=== PATIENT | female | born 1960 | race Caucasian/White ===

== ENCOUNTER 2019-03-03 05:32 | Inpatient (IN) | payer BC ==
[2019-03-03] VITALS (30 sets, daily range): BP systolic 93–141; BP diastolic 58–81; PULSE 69–112; RESP 13–20; Ht 157.5 cm; Wt 67.0 kg
[~2019-03-03] VITALS: Ht 157.5 cm; Wt 67.0 kg
[~2019-03-03 05:32] MED LIST: ACETAMINOPHEN 1000MG/100ML IV 100 ML IVPB ONE; DEXAMETHASONE 4 MG/ML 1 ML INJ IV ONE; LACTATED RINGER'S 1,000 ML IV SCH; LANSOPRAZOLE 30 MG CAP PO ONE; ONDANSETRON 4 MG INJ IV ONE; TRANEXAMIC ACID 1GM/100ML(PMX) 100 ML INTRA-OP X1 IVPB ONE; TRANEXAMIC ACID 1GM/100ML(PMX) 100 ML PRE-OP X1 IVPB ONE; VANCOMYCIN 1 GM (PMX) 250 ML IVPB ONE; oxyCODONE (CR) 10 MG TAB [oxyCONTIN] PO ONE
--- NOTE | 2019-03-03 06:47 | HPN ---
Date/Time of Note Date/Time of Note DATE: 03/03/19 TIME: 06:46 Interval H&P Admission Note Pt. seen H&P reviewed: No system changes NINA BOATENG MD Mar 03, 2019 06:47
[2019-03-03] MEDS ORDERED: BACITRACIN 50000 UNITS INJ ONE (06:58)
[2019-03-03] MEDS ORDERED: POLYMYXIN B 500000 UNIT INJ ONE (07:03)
[2019-03-03] MEDS ORDERED: TRANEXAMIC ACID 1GM/100ML(PMX) 200 ML ONE (07:03)
[2019-03-03] MEDS ORDERED: HIP PAIN COCKTAIL VANCO INJ SCH ×7 (07:30)
--- NOTE | 2019-03-03 07:37 | PREAC ---
Date/Time of Note Date/Time of Note DATE: 03/03/19 TIME: 07:35 Anesthesia Eval and Record Evaluation Time Pre-Procedure Interview DATE: 03/03/19 TIME: 07:35 Age 58 Sex female NPO: 8 hrs Preoperative diagnosis Left Hip OA Planned procedure Left Total Hip Replacement Anterior Approach Past Medical History Past Medical History: Includes Cardio: HTN, Dyslipidemia Musculoskeletal: Osteoarthritis Surgery & Anesthesia Issues No known issue Meds Anticoagulation: No Beta Phyllis within 24 hr: No Reason Beta Phyllis not given: Pt. not on B-Phyllis Current Medications Lactated Ringer's 1,000 ml @ 125 mls/hr Q8H IV ; Start 03/03/19 at 05:30; Stop 03/03/19 at 13:29 Ropivacaine/ Morphine Sulfate/ Clonidine/ Epinephrine/ Ketorolac Tromethamine/ Vancomycin HCl/ Sodium Chloride INTRA-OP INJ ; Start 03/03/19 at 07:30 Meds reviewed: Yes Allergies Coded Allergies: Penicillins (Verified Allergy, Intermediate, 03/02/19) Allergies Reviewed: Yes Labs/Studies Labs Reviewed: Reviewed by anesthesiologist test: N/A Studies: ECG (n/a), CXR (n/a) Pre-procedure Exam Last vitals Vital Signs Date Temp Pulse Resp B/P (MAP) Pulse Ox O2 O2 Flow FiO2 Time Delivery Rate 03/03/19 97.3 69 17 141/80 98 Room Air 07:18 (100) Airway: Adequate mouth opening, Adequate thyromental dist Mallampati: Mallampati II Teeth: Normal Lung: Normal Heart: Normal ASA Physical Status ASA physical status: 2 Emergency: None Planned Anesthetic General/MAC: ETT Neuraxial: Spinal Nerve block: Other (Left Fascia Iliaca Block) Planned Pain Management Sub-arachniod narcotics, Single shot nerve block, Parenteral pain med Pre-operative Attestations Prior to commencing anesthesia and surgery, the patient was re-evaluated, there was verification of: *The patient's identity *The results of appropriate recent lab work and preoperative vital signs *The above evaluation not changing prior to induction *Anesthetic plan, risk benefits, alternative and complications discussed with patient/family; questions answered; patient/family understands, accepts and wishes to proceed. BRIDGER SILVEIRA MD Mar 03, 2019 07:37
[2019-03-03] MEDS ORDERED: CEFAZOLIN 1 GM INJ ONE (07:41)
[2019-03-03] MEDS ORDERED: PROPOFOL 20 ML ONE (07:41)
[2019-03-03] MEDS ORDERED: ROCURONIUM 50 MG INJ ONE (07:41)
[2019-03-03] MEDS ORDERED: NEOSTIGMINE 3 MG/3 ML SYRINGE ONE (07:41)
[2019-03-03] MEDS ORDERED: GLYCOPYRROLATE 0.4 MG INJ ONE (07:41)
[2019-03-03] MEDS ORDERED: ONDANSETRON 4 MG INJ ONE (07:43)
[2019-03-03] MEDS ORDERED: MIDAZOLAM 1 MG/ML 2 ML INJ ONE (07:43)
[2019-03-03] MEDS ORDERED: DEXAMETHASONE 4 MG/ML 5 ML INJ ONE (07:43)
[2019-03-03] MEDS ORDERED: morphine SULFATE/PF (10 MG/10 ML) INJ ONE (07:43)
[2019-03-03] MEDS ORDERED: FENTAnyl 50 MCG/ML VIAL ONE (07:43)
[2019-03-03] MEDS ORDERED: NALOXONE (0.4 MG/ML) INJ IV PRN ×2 (09:00→10:30)
[2019-03-03] MEDS ORDERED: MEPERIDINE 25 MG INJ IV PRN (09:00)
[2019-03-03] MEDS ORDERED: NALBUPHINE HCL (10 MG/1 ML) INJ IV PRN (09:00)
[2019-03-03] MEDS ORDERED: MIDAZOLAM 1 MG/ML 2 ML INJ IV PRN (09:00)
[2019-03-03] MEDS ORDERED: ONDANSETRON 4 MG INJ IV PRN ×2 (09:00)
[2019-03-03] MEDS ORDERED: DIPHENHYDRAMINE 50 MG INJ IV PRN ×2 (09:00)
[2019-03-03] MEDS ORDERED: HYDROmorphONE 0.5 MG/0.5 ML SYG IV PRN ×2 (09:00)
[2019-03-03] MEDS ORDERED: FENTAnyl 50 MCG/ML VIAL IV PRN ×3 (09:00)
[2019-03-03] MEDS ORDERED: LABETALOL HCL 20MG INJ IV PRN (09:00)
[2019-03-03] MEDS ORDERED: IPRATROPIUM (NEB) 0.5 MG/2.5 ML AMP HHN PRN (09:00)
[2019-03-03] MEDS ORDERED: hydrALAzine 20 MG INJ IV PRN (09:00)
[2019-03-03] MEDS ORDERED: ALBUTEROL 0.083% (NEB) 2.5 MG/3 ML AMP HHN PRN (09:00)
[2019-03-03] MEDS ORDERED: HYDROmorphONE 1 MG/5 ML IV SYRINGE IV PRN ×3 (09:00)
[2019-03-03] MEDS ORDERED: EPHEDrine 25 MG/5 ML SYG IV PRN (09:00)
[2019-03-03] MEDS ORDERED: TRIMETHOBENZAMIDE 100 MG/ML VIAL IM PRN ×2 (09:00)
[2019-03-03] MEDS ORDERED: SUGAMMADEX SODIUM 200 MG/2 ML VIAL IV ONE (10:09)
--- NOTE | 2019-03-03 10:13 | SIPON ---
Date/Time of Note Date/Time of Note DATE: 03/03/19 TIME: 10:11 Operative Report Preoperative Diagnosis Left Hip Osteoarthritis Postoperative Diagnosis Same Operation/Procedure Performed Left Total Hip Arthroplasty Surgeon Selina Cuello MD medical records assistant NIKKY Guzman Anesthesia: spinal Estimated blood loss: other Transfusion Required none Specimen bone Grafts/Implants none Complications none SELINA CUELLO MD Mar 03, 2019 10:13
--- NOTE | 2019-03-03 10:23 | OPR ---
Date/Time of Note Date/Time of Note DATE: 03/03/19 TIME: 10:19 Operative Report Free Text/Dictation DATE OF OPERATION: March 03, 2019 PREOPERATIVE DIAGNOSIS: Left hip osteoarthritis. POSTOPERATIVE DIAGNOSIS: Left hip osteoarthritis. PROCEDURES PERFORMED: 1. Left total hip arthroplasty. CPT code 14558. 2. Computer assisted navigational procedure, CPT code 23715. 3. Interpretation of AP Pelvis x-ray. 4. Interpretation of left hip, 2 views. SURGEON: Nina Cuello. OUTREACH AND EDUCATION SOCIAL WORKER: 1. Leonor Lea PA-C ANESTHESIOLOGIST: Dr. Sorensen ANESTHESIA: Spinal ESTIMATED BLOOD LOSS: 300 mL. COMPLICATIONS: None. SPECIMENS: Resected bone. DISPOSITION: PACU in stable condition. IMPLANT USED: A DePuy Actis Stem size 3 stem, 32/+5 delta ceramic femoral head, 48 Stoughton Cup, 32 mm liner COMPLICATIONS: None. DISPOSITION: To PACU in stable condition. INDICATION FOR PROCEDURE: This is an 58 year-old female with endstage osteoarthritis of the left hip who had failed nonoperative management. Risks, benefits, alternatives of surgical intervention were discussed with the patient and informed consent was obtained. The risks of surgery include but are not limited to infection, deep venous thrombosis, pulmonary embolism, leg length discrepancy, fracture, damage to neurovascular structures requiring repair, loosening of the prosthesis, wear of prosthesis, need for revision surgery, heart attack, stroke, need for blood transfusion, risks associated with anesthesia and even . DESCRIPTION OF PROCEDURE: The patient was met in the preoperative suite and the correct operative site was confirmed and marked. Patient was then brought into operating room. After induction of general anesthesia, the patient was placed in the supine position on the table. The left lower extremity was prepped and draped in the usual sterile fashion. Before starting, a timeout was taken to identify the correct operative site, the patients name and medical record number and to confirm the preoperative antibiotics consisting of 1 gram of IV Ancef, along with 1 gram of tranexamic acid were administered. At this point, an 8 cm incision was made approximately 2 cm lateral and 1 cm distal to the ASIS. The incision was carried down to the fascia. The fascia was then incised. Then, 2 Allis clamps were placed. The interval was then bluntly developed and the tensor fascia marisel was then retracted laterally. The lateral circumflex vessels were identified and coagulated. The anterior capsule was then visualized and a capsulotomy was performed. At this point, markings were made for the napkin ring osteotomy of the femoral neck. Using the saw the initial osteotomy was then made and completed with the use of an osteotome. A Vianey was then used to remove the napkin ring and a corkscrew was then placed in the femoral head and the head was then removed. The head was sized to 45 mm. Sequential reaming was begun with a 41 mm reamer, going up to a 47 mm reamer. A trial 48 mm cup was then impacted and the radlink was then used to determine the appropriate anteversion and abduction of the cup. The cup was noted to be in approximately 36 degrees of inclination, and 19 degrees of anteversion. The trial was then removed. The appropriate size cup was then placed and again the radlink was used to determine the inclination and anteversion, and was noted be unchanged. The 32 mm liner was then impacted into place and the final acetabular x-rays were taken which again demonstrated the cup to be in appropriate abduction and anteversion. At this point, the femoral lift was then used and the leg was then placed in external rotation, extension, and adduction. Retractors were placed and the femoral releases were performed using a box osteotome followed by a canal finder. Sequential broaching was begun with a 0 broach going up to a size 3 standard broach. The trial 3 mm standard offset stem along with a 32/+5 trial head and neck were placed. The hip was then reduced and taken through range of motion, noted to be stable in extension and external rotation of up to 110 degrees. AP x-rays of the pelvis and left hip, 2 view x-rays were taken. The x-rays demonstrated the prosthesis to be in the correct position with equal leg lengths. The trial components were then removed. The appropriate sized components were then placed. The hip was again reduced with unchanged stability and equal leg lengths and no fractures were seen. The hip was again taken through range of motion and noted to be stable to extension and external rotation. The wound was then thoroughly irrigated. The capsule and the fascia were closed using #1 Stratafix. The subcutaneous tissue was closed using 2-0 Vicryl and the skin with 4-0 Monocryl in subcuticular fashion and Steri-Strips were applied. There were no complications. Patient was awakened and taken to postoperative care unit in stable condition. Prior to transfer, the patient was noted to have equal leg lengths and a palpable dorsalis pedis pulse. POSTOPERATIVE CARE: Patient will be weightbearing as tolerated. Patient will work with physical therapy, and receive multimodal pain management.. Patient will receive two additional doses of IV Ancef along with aspirin 81 mg p.o. b.i.d. for 6 weeks. Patient will have SCDs while in the hospital. Upon discharge, patient will follow up in my office within 2 weeks postoperatively. NINA CUELLO MD Mar 03, 2019 10:23
[2019-03-03] MEDS ORDERED: SENNA/DOCUSATE NA (8.6MG/50MG) TAB PO PRN (10:30)
[2019-03-03] MEDS ORDERED: BISACODYL 10 MG SUPP PR PRN (10:30)
[2019-03-03] MEDS ORDERED: NACL 0.9% 3 ML SYG IV SCH (10:30)
[2019-03-03] MEDS ORDERED: KETOROLAC 15 MG INJ IV PRN (10:30)
[2019-03-03] MEDS ORDERED: oxyCODONE 5 MG TAB PO PRN (10:30)
[2019-03-03] MEDS ORDERED: MAGNESIUM HYDROXIDE 30ML CUP PO PRN (10:30)
[2019-03-03] MEDS ORDERED: NA PHOSPHATE/BIPHOS 133 ML ENEMA PR PRN (10:30)
--- NOTE | 2019-03-03 10:43 | PAC ---
Date/Time of Note Date/Time of Note DATE: 03/03/19 TIME: 10:43 Post-Anesthesia Notes Post-Anesthesia Note Last documented vital signs Vital Signs Date Temp Pulse Resp B/P (MAP) Pulse Ox O2 O2 Flow FiO2 Time Delivery Rate 03/03/19 97.3 69 17 141/80 98 Room Air 07:18 (100) Activity: WNL Respiratory function: WNL Cardiovascular function: WNL Mental status: Baseline Pain reasonably controlled: Yes Hydration appropriate: Yes Nausea/Vomiting absent: Yes Omer Sorensen M.D. Mar 03, 2019 10:43
[2019-03-03] MEDS ORDERED: DOCUSATE SODIUM 100 MG CAP PO ONE (12:00)
[2019-03-03] MEDS: GABAPENTIN 100 MG CAP PO SCH ×2 (12:40→20:57)
--- NOTE | 2019-03-03 14:54 | CONS ---
Assessment/Plan Assessment/Plan Hospital Course (Demo Recall) 58-year-old female with comorbidities including hypertension, CAD status post coronary angioplasty, hyperlipidemia, and osteoarthritis of the left hip who underwent an elective left total hip arthroplasty and is being admitted to inpatient setting. 1. Left hip osteoarthritis. Status post left total hip arthroplasty on 03/03/2019. Postoperative day #0. Continue pain control. Weightbearing as per orthopedic surgery. Anticoagulation as per orthopedic surgery. Physical therapy and occupational therapy evaluation. 2. Hypertension. Resume home antihypertensives. 3. Dyslipidemia. Will obtain fasting lipid panel. Resume antilipemic medications. 4. History of CAD, status post coronary angioplasty. Continue aspirin. Continue cardiac medications. CODE STATUS: Full code. Diet: Low-cholesterol diet. Anticoagulation: As per orthopedic surgery. We will continue to follow the patient along with you. Thank you for allowing us to participate in this patient's care. The patient was seen in collaboration with Dr. Maldonado. Consultation Date/Type/Reason Admit Date/Time Mar 03, 2019 at 05:32 Date of Consultation: Mar 03, 2019 Type of Consult Medical. Reason for Consultation Medical management Requesting Provider: NINA BOATEGN MD Date/Time of Note DATE: 03/03/19 TIME: 14:54 Hx of Present Illness This is a 58-year-old female with comorbidities including CAD status post coronary angioplasty, hypertension, hyperlipidemia, osteoporosis, and severe left hip osteoarthritis who was brought in for elective left hip arthroplasty. The patient underwent a left total hip arthroplasty on 03/03/2019. Hospitalist consult was obtained for medical management. Constitutional: no complaints Eyes: no complaints ENT: no complaints Respiratory: no complaints Cardiovascular: no complaints Gastrointestinal: no complaints Genitourinary: no complaints Musculoskeletal: bone/joint pain Skin: no complaints Neurologic: no complaints Endocrine: no complaints Lymphatic: no complaints Psychological: no complaints Immunologic: no complaints Past Medical History 1. CAD. 2. HTN. 3. Hyperlipidemia. 4. Osteoporosis. Medications Current Medications Hydromorphone HCl (Dilaudid) 0.2 mg PACU PRN IV MILD PAIN 1-3; Start 03/03/19 at 09:00; Stop 03/03/19 at 15:00 Hydromorphone HCl (Dilaudid) 0.4 mg PACU PRN IV MOD PAIN 4-6; Start 03/03/19 at 09:00; Stop 03/03/19 at 15:00 Hydromorphone HCl (Dilaudid) 0.6 mg PACU PRN IV SEVERE PAIN 7-10; Start 03/03/19 at 09:00; Stop 03/03/19 at 15:00 Fentanyl (Sublimaze) 25 mcg PACU ORDER PRN IV MILD PAIN 1-3; Start 03/03/19 at 09:00; Stop 03/03/19 at 15:00 Fentanyl (Sublimaze) 50 mcg PACU ORDER PRN IV MOD PAIN 4-6; Start 03/03/19 at 09:00; Stop 03/03/19 at 15:00 Fentanyl (Sublimaze) 75 mcg PACU ORDER PRN IV SEVERE PAIN 7-10; Start 03/03/19 at 09:00; Stop 03/03/19 at 15:00 Ondansetron HCl (Zofran Inj) 4 mg PACU ORDER PRN IV NAUSEA/VOMITING; Start 03/03/19 at 09:00; Stop 03/03/19 at 15:00 Trimethobenzamide HCl (Tigan) 200 mg PACU ORDER PRN IM NAUSEA/VOMITING; Start 03/03/19 at 09:00; Stop 03/03/19 at 15:00 Labetalol HCl (Labetalol) 5 mg PACU ORDER PRN IV HIGH BLOOD PRESSURE; Start 03/03/19 at 09:00; Stop 03/03/19 at 15:00 Hydralazine HCl (Apresoline) 5 mg PACU ORDER PRN IV HIGH BLOOD PRESSURE; Start 03/03/19 at 09:00; Stop 03/03/19 at 15:00 Ephedrine Sulfate 5 mg PACU ORDER PRN IV BLOOD PRESSURE SUPPORT; Start 03/03/19 at 09:00; Stop 03/03/19 at 15:00 Albuterol (Proventil 0.083% (Neb)) 2.5 mg PACU ORDER PRN HHN .WHEEZING; Start 03/03/19 at 09:00; Stop 03/03/19 at 15:00 Ipratropium [place] (Atrovent 0.02% (Neb)) 0.5 mg PACU ORDER PRN HHN .WHEEZING; Start 03/03/19 at 09:00; Stop 03/03/19 at 15:00 Meperidine HCl (Demerol) 25 mg PACU ORDER PRN IV .RIGORS; Start 03/03/19 at 09:00; Stop 03/03/19 at 15:00 Diphenhydramine HCl (Benadryl) 25 mg PACU ORDER PRN IV .PRURITUS; Start 03/03/19 at 09:00; Stop 03/03/19 at 15:00 Midazolam HCl (Versed) 0.5 mg PACU ORDER PRN IV .ANXIETY; Start 03/03/19 at 09:00; Stop 03/03/19 at 15:00 Hydromorphone HCl (Dilaudid) 0.2 mg Q2H PRN IV .PAIN 1-5; Start 03/03/19 at 09:00; Stop 03/04/19 at 07:45 Hydromorphone HCl (Dilaudid) 0.4 mg Q2H PRN IV .PAIN 6-10; Start 03/03/19 at 09:00; Stop 03/04/19 at 07:45 Diphenhydramine HCl (Benadryl) 25 mg Q4H PRN IV .PRURITUS; Start 03/03/19 at 09:00; Stop 03/04/19 at 07:45 Nalbuphine HCl (Nubain) 10 mg Q4H PRN IV .PRURITUS; Start 03/03/19 at 09:00; Stop 03/04/19 at 07:45 Ondansetron HCl (Zofran Inj) 4 mg Q6H PRN IV .NAUSEA/VOMITING; Start 03/03/19 at 09:00; Stop 03/04/19 at 07:45 Trimethobenzamide HCl (Tigan) 200 mg Q6H PRN IM .NAUSEA/VOMITING; Start 03/03/19 at 09:00; Stop 03/04/19 at 07:45 Naloxone HCl (Narcan) 0.2 mg Q2M PRN IV .RESP RATE; Start 03/03/19 at 09:00; Stop 03/04/19 at 07:45 Miscellaneous Information (* Miscellaneous Pharmacy Order) DURAMORPH: 0.1 MG SPI... GIVEN NEURAXIAL XX ; Start 03/03/19 at 09:00 Oxycodone HCl (Roxicodone) 5 mg Q4H PRN PO .PAIN; Start 03/03/19 at 10:30 Vancomycin HCl 250 ml @ 125 mls/hr Q12H IVPB ; Start 03/03/19 at 18:00; Stop 03/04/19 at 07:59 Celecoxib (Celebrex) 100 mg BID PO ; Start 03/04/19 at 09:00 Gabapentin (Neurontin) 100 mg TID PO Last administered on 03/03/19at 12:40; Admin Dose 100 MG; Start 03/03/19 at 13:00 Pantoprazole (Protonix Tab) 40 mg DAILY@06 PO ; Start 03/04/19 at 06:00 Docusate Sodium (Colace) 200 mg BID PO ; Start 03/04/19 at 09:00; Stop 03/06/19 at 21:01 Simethicone (Mylicon) 80 mg TID PRN PO .GAS; Start 03/03/19 at 10:30 Senna/Docusate Sodium (Senokot-S) 2 tab BID PRN PO .CONSTIPATION; Start 03/03/19 at 10:30 Magnesium Hydroxide (Milk Of Mag) 30 ml HS PRN PO .CONSTIPATION; Start 03/03/19 at 10:30 Bisacodyl (Dulcolax Supp) 10 mg DAILY PRN OR .CONSTIPATION; Start 03/03/19 at 10:30 Sodium Biphosphate/ Sodium Phosphate (Fleet Enema) 133 ml DAILY PRN OR .CONSTIPATION; Start 03/03/19 at 10:30 Ketorolac Tromethamine (Toradol) 15 mg Q6H PRN IV .PAIN; Start 03/03/19 at 10:30 Naloxone HCl (Narcan) 0.2 mg Q2M PRN IV .RESP RATE; Start 03/03/19 at 10:30 IV Flush (NS 3 ml) 3 ml per protocol IV ; Start 03/03/19 at 10:30 Aspirin (Halfprin) 81 mg BID PO ; Start 03/04/19 at 09:00 Allergies: Coded Allergies: Penicillins (Verified Allergy, Intermediate, 03/02/19) Past Surgical History Past Surgical Hx: angioplasty Social History The patient lives at home with her family. Alcohol Use: none Smoking Status: Never smoker Drug Use: none Exam/Review of Systems Exam Vitals Vital Signs Date Temp Pulse Resp B/P (MAP) Pulse Ox O2 O2 Flow FiO2 Time Delivery Rate 03/03/19 97.5 92 16 117/67 96 Nasal 14:26 (84) Cannula 03/03/19 2.0 12:58 Exam General: Adequately build 58 year-old female lying in bed in no apparent distress. HEENT: Normocephalic, atraumatic. Eyes: Anicteric sclerae, conjunctivae clear. ENT: Nasal septum midline, oral mucosa moist. Neck supple, no JVD noticed. Respiratory: Bilaterally clear breath sounds. No use of accessory muscles of respiration. No adventitious breath sounds. Cardiovascular: S1, S2 heard. Regular rate and rhythm. Abdomen: Soft, nontender, and nondistended. Bowel sounds positive in all 4 quadrants. Genitourinary: Deferred. Extremities: No cyanosis, no clubbing. Left hip surgical dressing. Peripheral pulses palpable. Neurologic: Cranial nerves II through XII grossly intact. The patient is awake, alert, and oriented. Skin: Normal skin turgor. No skin rashes. Medications Medication Current Medications Hydromorphone HCl (Dilaudid) 0.2 mg PACU PRN IV MILD PAIN 1-3; Start 03/03/19 at 09:00; Stop 03/03/19 at 15:00 Hydromorphone HCl (Dilaudid) 0.4 mg PACU PRN IV MOD PAIN 4-6; Start 03/03/19 at 09:00; Stop 03/03/19 at 15:00 Hydromorphone HCl (Dilaudid) 0.6 mg PACU PRN IV SEVERE PAIN 7-10; Start 03/03/19 at 09:00; Stop 03/03/19 at 15:00 Fentanyl (Sublimaze) 25 mcg PACU ORDER PRN IV MILD PAIN 1-3; Start 03/03/19 at 09:00; Stop 03/03/19 at 15:00 Fentanyl (Sublimaze) 50 mcg PACU ORDER PRN IV MOD PAIN 4-6; Start 03/03/19 at 09:00; Stop 03/03/19 at 15:00 Fentanyl (Sublimaze) 75 mcg PACU ORDER PRN IV SEVERE PAIN 7-10; Start 03/03/19 at 09:00; Stop 03/03/19 at 15:00 Ondansetron HCl (Zofran Inj) 4 mg PACU ORDER PRN IV NAUSEA/VOMITING; Start 03/03/19 at 09:00; Stop 03/03/19 at 15:00 Trimethobenzamide HCl (Tigan) 200 mg PACU ORDER PRN IM NAUSEA/VOMITING; Start at 09:00; Stop 03/03/19 at 15:00 Labetalol HCl (Labetalol) 5 mg PACU ORDER PRN IV HIGH BLOOD PRESSURE; Start 03/03/19 at 09:00; Stop 03/03/19 at 15:00 Hydralazine HCl (Apresoline) 5 mg PACU ORDER PRN IV HIGH BLOOD PRESSURE; Start 03/03/19 at 09:00; Stop 03/03/19 at 15:00 Ephedrine Sulfate 5 mg PACU ORDER PRN IV BLOOD PRESSURE SUPPORT; Start 03/03/19 at 09:00; Stop 03/03/19 at 15:00 Albuterol (Proventil 0.083% (Neb)) 2.5 mg PACU ORDER PRN HHN .WHEEZING; Start 03/03/19 at 09:00; Stop 03/03/19 at 15:00 Ipratropium [place] (Atrovent 0.02% (Neb)) 0.5 mg PACU ORDER PRN HHN .WHEEZING; Start 03/03/19 at 09:00; Stop 03/03/19 at 15:00 Meperidine HCl (Demerol) 25 mg PACU ORDER PRN IV .RIGORS; Start 03/03/19 at 09:00; Stop 03/03/19 at 15:00 Diphenhydramine HCl (Benadryl) 25 mg PACU ORDER PRN IV .PRURITUS; Start 03/03/19 at 09:00; Stop 03/03/19 at 15:00 Midazolam HCl (Versed) 0.5 mg PACU ORDER PRN IV .ANXIETY; Start 03/03/19 at 09:00; Stop 03/03/19 at 15:00 Hydromorphone HCl (Dilaudid) 0.2 mg Q2H PRN IV .PAIN 1-5; Start 03/03/19 at 09:00; Stop 03/04/19 at 07:45 Hydromorphone HCl (Dilaudid) 0.4 mg Q2H PRN IV .PAIN 6-10; Start 03/03/19 at 09:00; Stop 03/04/19 at 07:45 Diphenhydramine HCl (Benadryl) 25 mg Q4H PRN IV .PRURITUS; Start 03/03/19 at 09:00; Stop 03/04/19 at 07:45 Nalbuphine HCl (Nubain) 10 mg Q4H PRN IV .PRURITUS; Start 03/03/19 at 09:00; Stop 03/04/19 at 07:45 Ondansetron HCl (Zofran Inj) 4 mg Q6H PRN IV .NAUSEA/VOMITING; Start 03/03/19 at 09:00; Stop 03/04/19 at 07:45 Trimethobenzamide HCl (Tigan) 200 mg Q6H PRN IM .NAUSEA/VOMITING; Start 03/03/19 at 09:00; Stop 03/04/19 at 07:45 Naloxone HCl (Narcan) 0.2 mg Q2M PRN IV .RESP RATE; Start 03/03/19 at 09:00; Stop 03/04/19 at 07:45 Miscellaneous Information (* Miscellaneous Pharmacy Order) DURAMORPH: 0.1 MG SPI... GIVEN NEURAXIAL XX ; Start 03/03/19 at 09:00 Oxycodone HCl (Roxicodone) 5 mg Q4H PRN PO .PAIN; Start 03/03/19 at 10:30 Vancomycin HCl 250 ml @ 125 mls/hr Q12H IVPB ; Start 03/03/19 at 18:00; Stop 03/04/19 at 07:59 Celecoxib (Celebrex) 100 mg BID PO ; Start 03/04/19 at 09:00 Gabapentin (Neurontin) 100 mg TID PO Last administered on 03/03/19at 12:40; Admin Dose 100 MG; Start 03/03/19 at 13:00 Pantoprazole (Protonix Tab) 40 mg DAILY@06 PO ; Start 03/04/19 at 06:00 Docusate Sodium (Colace) 200 mg BID PO ; Start 03/04/19 at 09:00; Stop 03/06/19 at 21:01 Simethicone (Mylicon) 80 mg TID PRN PO .GAS; Start 03/03/19 at 10:30 Senna/Docusate Sodium (Senokot-S) 2 tab BID PRN PO .CONSTIPATION; Start 03/03/19 at 10:30 Magnesium Hydroxide (Milk Of Mag) 30 ml HS PRN PO .CONSTIPATION; Start 03/03/19 at 10:30 Bisacodyl (Dulcolax Supp) 10 mg DAILY PRN OR .CONSTIPATION; Start 03/03/19 at 10:30 Sodium Biphosphate/ Sodium Phosphate (Fleet Enema) 133 ml DAILY PRN OR .CONSTIPATION; Start 03/03/19 at 10:30 Ketorolac Tromethamine (Toradol) 15 mg Q6H PRN IV .PAIN; Start 03/03/19 at 10:30 Naloxone HCl (Narcan) 0.2 mg Q2M PRN IV .RESP RATE; Start 03/03/19 at 10:30 IV Flush (NS 3 ml) 3 ml per protocol IV ; Start 03/03/19 at 10:30 Aspirin (Halfprin) 81 mg BID PO ; Start 03/04/19 at 09:00 STACIA MORIN NP Mar 03, 2019 14:54
[2019-03-03] MEDS ORDERED: CEPASTAT LOZENGE MT PRN (15:30)
[2019-03-03] MEDS: VANCOMYCIN 1 GM (PMX) 250 ML IVPB SCH (17:58)
[2019-03-03] MEDS ORDERED: ATORVASTATIN 40 MG TAB PO SCH (21:00)
[2019-03-04 00:03] VITALS: BP 103/55; PULSE 71; RESP 18
[2019-03-04 04:10] VITALS: BP 117/61; PULSE 78; RESP 18
[2019-03-04] MEDS: VANCOMYCIN 1 GM (PMX) 250 ML IVPB SCH (05:27)
[2019-03-04] MEDS ORDERED: PANTOPRAZOLE (EC) 40 MG TAB PO SCH (06:00)
--- NOTE | 2019-03-04 08:51 | CONS ---
Assessment/Plan Assessment/Plan Hospital Course (Demo Recall) SUBJECTIVE: Left hip pain well controlled. OBJECTIVE: Physical Exam General: Adequately build 58 year-old female lying in bed in no apparent distress. HEENT: Normocephalic, atraumatic. Eyes: Anicteric sclerae, conjunctivae clear. ENT: Nasal septum midline, oral mucosa moist. Neck supple, no JVD noticed. Respiratory: Bilaterally clear breath sounds. No use of accessory muscles of respiration. No adventitious breath sounds. Cardiovascular: S1, S2 heard. Regular rate and rhythm. Abdomen: Soft, nontender, and nondistended. Bowel sounds positive in all 4 quadrants. Genitourinary: Deferred. Extremities: No cyanosis, no clubbing. Left hip surgical dressing. Peripheral pulses palpable. Neurologic: Cranial nerves II through XII grossly intact. The patient is awake, alert, and oriented. Skin: Normal skin turgor. No skin rashes. Labs & Vitals per chart ASSESSMENT & PLAN 58-year-old female with comorbidities including hypertension, CAD status post coronary angioplasty, hyperlipidemia, and osteoarthritis of the left hip who underwent an elective left total hip arthroplasty and was admitted to inpatient setting. 1. Left hip osteoarthritis. Status post left total hip arthroplasty on 03/03/2019. Postoperative day #1. Continue pain control. Weightbearing as per orthopedic surgery. Anticoagulation as per orthopedic surgery. Physical therapy and occupational therapy. 2. Hypertension. Continue home antihypertensives. 3. Dyslipidemia. Satisfactory fasting lipid panel. Continue antilipemic medications. 4. History of CAD, status post coronary angioplasty. Continue aspirin. Continue cardiac medications. CODE STATUS: Full code. Diet: Low-cholesterol diet. Anticoagulation: As per orthopedic surgery. Thank you for allowing us to participate in this patient's care. The patient is medically cleared to be discharged pending decision by orthopedic surgery. The patient was seen in collaboration with Dr. Maldonado. Consultation Date/Type/Reason Admit Date/Time Mar 03, 2019 at 05:32 Initial Consult Date 03/03/19 Type of Consult Medical. Reason for Consultation Medical management. Requesting Provider: NINA BOATENG MD Date/Time of Note DATE: 03/04/19 TIME: 08:49 Exam/Review of Systems Exam Vitals Vital Signs Date Temp Pulse Resp B/P (MAP) Pulse Ox O2 O2 Flow FiO2 Time Delivery Rate 03/04/19 95 Room Air 05:40 03/04/19 97.8 78 18 117/61 04:10 (79) 03/03/19 2.0 21:00 Intake and Output 03/03/19 03/03/19 03/04/19 1515:00 23:00 07:00 IntakeIntake Total 2400 ml 815 ml 200 ml OutputOutput Total 200 ml BalanceBalance 2200 ml 815 ml 200 ml Results Result Diagram: 03/04/19 0423 03/04/19 0424 Results 24hrs Laboratory Tests Test 03/04/19 04:23 03/04/19 04:24 03/04/19 04:45 03/04/19 07:17 White Blood Count 9.4 Red Blood Count 3.15 L Hemoglobin 9.7 L Hematocrit 29.5 L Mean Corpuscular 93.7 Volume Mean Corpuscular 30.8 Hemoglobin Mean Corpuscular 32.9 Hemoglobin Concent Red Cell Distribution 13.7 Width Platelet Count 230 Mean Platelet Volume 11.6 H Immature Granulocytes 0.200 % Neutrophils % 71.6 Lymphocytes % 16.5 Monocytes % 11.5 H Eosinophils % 0.0 Basophils % 0.2 Nucleated Red Blood 0.0 Cells % Immature Granulocytes 0.020 # Neutrophils # 6.8 Lymphocytes # 1.6 Monocytes # 1.1 H Eosinophils # 0.0 Basophils # 0.0 Nucleated Red Blood 0.0 Cells # Phosphorus Level 4.0 Magnesium Level 1.9 Triglycerides Level 145 Cholesterol Level 167 LDL Cholesterol, 73 Calculated HDL Cholesterol 65 Cholesterol/HDL Ratio 2.5 Sodium Level 140 Potassium Level 4.0 Chloride Level 105 Carbon Dioxide Level 28 Anion Gap 7 Blood Urea Nitrogen 10 Creatinine 0.61 Est Glomerular > 60 Filtrat Rate mL/min Glucose Level 128 Calcium Level 9.2 Prothrombin Time 13.0 Prothrombin Time 1.0 Ratio INR International 0.97 Normalized Ratio Lab Scanned Report REFERENCE LAB Medications Medication Current Medications Miscellaneous Information (* Miscellaneous Pharmacy Order) DURAMORPH: 0.1 MG SPI... GIVEN NEURAXIAL XX ; Start 03/03/19 at 09:00 Oxycodone HCl (Roxicodone) 5 mg Q4H PRN PO .PAIN; Start 03/03/19 at 10:30 Celecoxib (Celebrex) 100 mg BID PO ; Start 03/04/19 at 09:00 Gabapentin (Neurontin) 100 mg TID PO Last administered on 03/03/19at 20:57; Admin Dose 100 MG; Start 03/03/19 at 13:00 Pantoprazole (Protonix Tab) 40 mg DAILY@06 PO Last administered on 03/04/19at 05:27; Admin Dose 40 MG; Start 03/04/19 at 06:00 Docusate Sodium (Colace) 200 mg BID PO ; Start 03/04/19 at 09:00; Stop 03/06/19 at 21:01 Simethicone (Mylicon) 80 mg TID PRN PO .GAS; Start 03/03/19 at 10:30 Senna/Docusate Sodium (Senokot-S) 2 tab BID PRN PO .CONSTIPATION; Start 03/03/19 at 10:30 Magnesium Hydroxide (Milk Of Mag) 30 ml HS PRN PO .CONSTIPATION; Start 03/03/19 at 10:30 Bisacodyl (Dulcolax Supp) 10 mg DAILY PRN PA .CONSTIPATION; Start 03/03/19 at 10:30 Sodium Biphosphate/ Sodium Phosphate (Fleet Enema) 133 ml DAILY PRN PA .CONSTIPATION; Start 03/03/19 at 10:30 Ketorolac Tromethamine (Toradol) 15 mg Q6H PRN IV .PAIN Last administered on 03/04/19at 05:30; Admin Dose 15 MG; Start 03/03/19 at 10:30 Naloxone HCl (Narcan) 0.2 mg Q2M PRN IV .RESP RATE; Start 03/03/19 at 10:30 IV Flush (NS 3 ml) 3 ml per protocol IV ; Start 03/03/19 at 10:30 Aspirin (Halfprin) 81 mg BID PO ; Start 03/04/19 at 09:00 Atorvastatin Calcium (Lipitor) 40 mg HS PO Last administered on 03/03/19at 20:57; Admin Dose 40 MG; Start 03/03/19 at 21:00 Losartan Potassium (Cozaar) 50 mg DAILY PO ; Start 03/04/19 at 09:00 Metoprolol Tartrate (Lopressor) 25 mg DAILY PO ; Start 03/04/19 at 09:00 Phenol (Cepastat Lozenge) 1 lozenge Q1H PRN MT SORE THROAT Last administered on 03/03/19at 16:12; Admin Dose 1 LOZENGE; Start 03/03/19 at 15:30 STACIA MORIN NP Mar 04, 2019 08:51
[2019-03-04] MEDS: GABAPENTIN 100 MG CAP PO SCH ×2 (08:56→13:10)
[2019-03-04] MEDS ORDERED: METOPROLOL 25 MG TAB PO SCH (09:00)
[2019-03-04] MEDS ORDERED: DOCUSATE SODIUM 100 MG CAP PO SCH (09:00)
[2019-03-04] MEDS ORDERED: ASPIRIN (EC) 81 MG TAB PO SCH (09:00)
[2019-03-04] MEDS ORDERED: LOSARTAN 50 MG TAB PO SCH (09:00)
[2019-03-04] MEDS ORDERED: CELECOXIB 100 MG CAP PO SCH (09:00)
[2019-03-04 09:02] VITALS: BP 121/58; PULSE 68; RESP 18
--- NOTE | 2019-03-16 16:03 | DS ---
DATE OF ADMISSION: 03/03/2019 DATE OF DISCHARGE: 03/04/2019 Essence Mccarty underwent a left total hip arthroplasty 03/03/2019. There were no complications durin g the surgery. She was subsequently admitted to the medical floor. She received postoperative DVT p rophylaxis and antibiotics. She progressed well with physical therapy and passed physical therapy. She was discharged home in stable condition 03/04/2019. There were no complications during this hosp ital stay. She was to follow up in my office within 10 to 14 days postoperatively. Dictated By: NINA BOATENG MD SS/NTS Conf#: [id number] DID#: [id number] CC: GRETTA MATUTE MD;*EndCC*
== END 2019-03-04 14:37 | disposition home health service (06) | DRG 470 ==
LOC: REC 05:32 → MS1 14:09
PROVIDERS: ADMIT Orthopaedic Surgery Adult Reconstructive Orthopaedic Surgery; ATTEND Orthopaedic Surgery Adult Reconstructive Orthopaedic Surgery
PROC: 8E0YXBZ Computer Assisted Procedure of Lower Extremity (ICD-10-PCS; 2019-03-03)
PROC: 0SRB04A Replacement of Left Hip Joint with Ceramic on Polyethylene Synthetic Substitute, Uncemented, Open Approach (ICD-10-PCS; principal; 2019-03-03 07:30)
DX: M16.12 Unilateral primary osteoarthritis, left hip (principal); I10 Essential (primary) hypertension; E78.5 Hyperlipidemia, unspecified; I25.10 Atherosclerotic heart disease of native coronary artery without angina pectoris; Z98.61 Coronary angioplasty status; M81.0 Age-related osteoporosis without current pathological fracture
CPT/HCPCS: 72170; 73500; 73530; 80048; 80061; 83735; 84100; 85025; 85610; 88304; 88311; 97110; 97116; 97161; 97167; 97530; 97535; C1776; J0131; J0690; J1100; J1885; J2250; J2274; J2405; J2710; J3010; J3370; J7120